=== PATIENT | female | born 1960 | race Caucasian/White ===

== ENCOUNTER 2019-01-04 07:03 | Day surgery (SDC) | payer BC ==
[~2019-01-04 07:03] MED LIST: ACETAMINOPHEN 1,000 MG/100 ML BTL IVPB ONE; CLINDAMYCIN PHOS/D5W 900MG 900 MG/50 ML BAG IVPB ONE; FAMOTIDINE 20MG TABLET PO ONE; MECLIZINE 25 MG TABLET PO ONE; METOCLOPRAMIDE 10 MG TABLET PO ONE
[2019-01-04] MEDS ORDERED: FENTANYL PF 100MCG/2ML VIAL IV ONE (07:04)
[2019-01-04] MEDS ORDERED: EPHEDRINE SULFATE 50 MG/ML ML IV ONE (07:04)
[2019-01-04] MEDS ORDERED: LIDOCAINE 2% MDV (20MG/ML) 20ML VIAL IV ONE (07:04)
[2019-01-04] MEDS ORDERED: PROPOFOL 10 MG/ML VIAL IV ONE (07:04)
[2019-01-04] MEDS ORDERED: ROPIVACAINE HCL (NAROPIN) /PF 5MG/ML 20ML VIAL IV ONE (07:04)
[2019-01-04] MEDS ORDERED: DEXAMETHASONE 4 MG/ML 1ML VIAL IVP ONE ×2 (07:04)
[2019-01-04] MEDS ORDERED: 0.9 % SODIUM CHLORIDE 10 ML VIAL IVP ONE (07:04)
[2019-01-04] MEDS ORDERED: ONDANSETRON HCL IV 4 MG/2 ML VIAL IVP ONE (07:04)
[2019-01-04] MEDS ORDERED: MIDAZOLAM HCL 2MG/2ML VIAL IV ONE (07:04)
[2019-01-04] MEDS ORDERED: DESFLURANE 240 ML BTL INH ONE (07:04)
[2019-01-04] MEDS ORDERED: RINGERS SOLUTION,LACTATED 1,000 ML IV ONE ×2 (07:30→09:26)
[2019-01-04] MEDS ORDERED: BUPIVACAINE 0.5% W/EPI MPF 30 ML VIAL SQ ONE (09:26)
[2019-01-04] MEDS ORDERED: VANCOMYCIN HCL 1,000 MG in 0.9 % SODIUM CHLORIDE 250ML 250 ML IVPB ONE (10:30)
--- NOTE | 2019-01-04 13:01 | Operative Note ---
DATE OF SURGERY: 01/04/2019 PREOPERATIVE DIAGNOSIS: Heel fracture of the left distal radius with ulnar impingement. POSTOPERATIVE DIAGNOSIS: Heel fracture of the left distal radius with ulnar impingement. OPERATION: 1. Left ulnar shortening osteotomy. 2. Interpretation of x-rays. STAFF SURGEON: Anthony Johns MD ANESTHESIA: General. PREPARATION: Chloraprep. INDIVIDUAL CONSIDERATIONS: None. PROCEDURE: The patient was taken to the operating room and placed supine on the operating room table. Her left arm was prepped and draped in the usual fashion. The limb was elevated and tourniquet was inflated to 350 mmHg. The patient had a 10 cm incision made directly over the ulna. This was done about 3 cm proximal to the tip of the ulna. Sharp dissection carried down through the skin. Large veins were coagulated with isolation and 3-0 tie. Small veins were coagulated with a Bovie. The interval between the flexion/extensor carpi ulnaris was identified right on the ulna. The muscles were then dissected subperiosteally both volarly and dorsally. I went ahead and placed the [employer] ulnar shortening plate on the volar surface and held it provisionally with a couple of clamps. I then placed a locking screw in the distal hole. In a proximal shortening hole, I drilled it the most proximal slot and then placed a thumb screw in that hole. I then placed a plate pack at the proximal hole. I then went ahead and assembled the osteotomy guide and assembled it to the third most distal hole. I set it to number one and made the initial osteotomy while irrigating. I then moved the osteotomy guide to the 7 mm hole which corresponded to how much shortening I wanted to get from preoperative planning. I then went ahead and cut this. After doing this, I then placed a drill guide in the second hole and then closed the osteotomy and then verified with fluoroscopy that I had reached an ulnar minus point. I then held everything provisionally with clamps. I placed plate lagging screws at the third and fourth holes, and then I placed a lag screw across the osteotomy site through the oblique hole. I then filled the remaining holes after verifying with fluoroscopy with locking screws. This gave excellent stable osteosynthesis with obvious compression across the osteotomy site. All of this was verified by fluoroscopy. After irrigation, I went ahead and put tourniquet down. Hemostasis was obtained with a Bovie. I had excellent hemostasis. I went ahead and just closed the skin with a running 3-0 Stratafix and then infiltrated the skin with 10 mL of 0.5% Marcaine with epinephrine. A sterile bulky compressive dressing was applied. The patient tolerated procedure well. Needle and sponge counts were correct. Estimated blood loss was minimal. The patient was taken back to recovery in good condition. There were no complications. YONATAN
== END 2019-01-04 11:15 | disposition home or self-care (01) ==
LOC: SUR 07:03
PROVIDERS: ATTEND Orthopaedic Surgery
DX: M24.832 Other specific joint derangements of left wrist, not elsewhere classified (principal); F17.210 Nicotine dependence, cigarettes, uncomplicated
CPT/HCPCS: 76942; J2405; J3490; J7050; J7120